=== PATIENT | male | born 1955 | race African-American/Black ===

== ENCOUNTER 2019-05-04 04:04 | Inpatient (IN) | payer BC ==
[~2019-05-04] VITALS: Ht 182.9 cm; Wt 111.1 kg
[2019-05-04] MEDS ORDERED: METHYLPREDNISOLONE SOD SUCC 125 MG/2 ML VIAL IV STA (04:10)
[2019-05-04] MEDS ORDERED: ONDANSETRON HCL 4MG/2ML INJ IV STA (04:10)
[2019-05-04] MEDS ORDERED: IPRATROPIUM BROMIDE (0.02%) 0.5MG/2.5ML NEB HHN STA (04:10)
[2019-05-04] MEDS ORDERED: MAGNESIUM 2 G PREMIX 50 ML IV ONE (04:15)
[2019-05-04] MEDS: ALBUTEROL (0.083%) 2.5MG/3ML NEB HHN SCH ×3 (04:20→05:22)
[2019-05-04 04:40] LABS: EOSINOPHILS % 10.9 % (0.0-5.0); HEMATOCRIT. 43.3 % (42.0-52.0); HEMOGLOBIN. 14.2 g/dL (14.0-18.0); LYMPHOCYTES % 17.2 % (20.0-50.0); MEAN CORPUSCULAR HEMOGLOBIN 28.7 pg (28.0-32.0); MEAN CORPUSCULAR VOLUME 87.8 fL (80.0-94.0); MEAN PLATELET VOLUME 10.6 fl (7.4-10.4); MONOCYTES % 8.3 % (2.0-8.0); NEUTROPHILS % 62.6 % (40.0-76.0); PLATELET 128 x1000/uL (130-400); RED BLOOD CELL COUNT 4.93 mill/uL (4.7-6.1); RED CELL DISTRIBUTION WIDTH 15.8 % (11.6-14.6)
[2019-05-04 04:43] LABS: CHLORIDE 106 mEq/L (98-107)
[2019-05-04 05:45] LABS: BG BASE EXCESS -0.5 mmol/L (-2.0-2.0); BG BILEVEL POS AIRWAY PRESSURE 18/5; BG CARBOXYHEMOGLOBIN 0.7 % (0.5-1.5); BG DEOXYHEMOGLOBIN 1.2 % (0.0-5.0); BG FRACTION INSPIRED OXYGEN 50; BG HCO3 ACT 25.2 mmol/L (22.0-26.0); BG METHEMOGLOBIN 0.2 % (0.0-1.5); BG OXYGEN SATURATION 98.8 % (92.0-98.5); BG OXYHEMOGLOBIN 97.9 % (94.0-97.0); BG PCO2 45.5 mmHg (35.0-45.0); BG PH 7.361 (7.350-7.450); BG PO2 155.3 mmHg (75.0-100.0); BG SAMPLE SITE RIGHT RADIAL; BG TOTAL HEMOGLOBIN 13.5 g/dL (12.0-18.0); BG VENT MODE MASK - BIPAP; BG VENT RATE 18 set
[2019-05-04] MEDS ORDERED: ACETAMINOPHEN 325MG TABLET PO PRN (08:00)
[2019-05-04] MEDS: IPRATROPIUM/ALBUTEROL 0.5-3(2.5)MG/3ML NEB HHN SCH ×4 (08:00→21:23)
[2019-05-04] MEDS ORDERED: KETOROLAC 15MG/ML VIAL IV PRN (08:00)
[2019-05-04] MEDS ORDERED: IPRATROPIUM/ALBUTEROL 0.5-3(2.5)MG/3ML NEB NEB PRN (08:00)
[2019-05-04] MEDS ORDERED: DOCUSATE SODIUM 100MG CAPSULE PO PRN (08:00)
[2019-05-04] MEDS ORDERED: MAGNESIUM/ALUMINUM HYDROXIDE/SIMETHICONE 30ML UDC PO PRN (08:00)
[2019-05-04] MEDS ORDERED: LORAZEPAM 0.5MG TABLET PO PRN (08:00)
[2019-05-04] MEDS ORDERED: CLONIDINE 0.1MG TABLET PO PRN (08:00)
[2019-05-04] MEDS ORDERED: NITROGLYCERIN 0.4MG TABLET SL SL PRN (08:00)
[2019-05-04] MEDS ORDERED: TRAMADOL 50MG TABLET PO PRN (08:00)
[2019-05-04] MEDS ORDERED: ONDANSETRON HCL 4MG/2ML INJ IV PRN (08:00)
[2019-05-04] MEDS ORDERED: LEVOFLOXACIN 500MG PREMIX 100 ML IV SCH (08:00)
[2019-05-04] MEDS ORDERED: ENOXAPARIN 40MG/0.4ML SYR SUBCUT SCH (09:00)
[2019-05-04] MEDS: GUAIFENESIN/DM 600MG/30MG ER TAB 12HR PO SCH ×2 (09:00→21:00)
[2019-05-04] MEDS ORDERED: LEVOFLOXACIN 500MG PREMIX 100 ML IV ONE (09:00)
[2019-05-04] MEDS: DILTIAZEM HCL 60MG TABLET PO SCH ×3 (09:00→18:19)
[2019-05-04] MEDS ORDERED: FAMOTIDINE 20MG TABLET PO SCH (09:00)
[2019-05-04] MEDS: ASPIRIN 325MG EC TABLET PO SCH (09:42)
[2019-05-04] MEDS ORDERED: FUROSEMIDE 40MG/4ML VIAL IVP NR ×2 (10:00→21:00)
[2019-05-04] MEDS: FAMOTIDINE 20MG TABLET PO SCH ×2 (11:45→21:00)
[2019-05-04] MEDS: GUAIFENESIN 200MG/10ML SUGAR FREE UDC PO PRN ×2 (12:22→17:02)
[2019-05-04] MEDS: METHYLPREDNISOLONE SOD SUCC 125 MG/2 ML VIAL IV SCH (14:42)
[2019-05-04] MEDS ORDERED: MONTELUKAST SODIUM 10MG TABLET PO SCH (17:00)
[2019-05-04 17:17] LABS: CREATINE KINASE 323 IU/L (39-308)
[2019-05-04] MEDS ORDERED: SPIRONOLACTONE 25MG TABLET PO NR (21:00)
[2019-05-04] MEDS ORDERED: ZOLPIDEM TARTRATE 5MG TABLET PO PRN (21:00)
[2019-05-04] MEDS ORDERED: MONTELUKAST SODIUM 10MG TABLET PO NR (21:00)
[2019-05-04] MEDS ORDERED: LORATADINE 10MG TABLET PO NR (21:00)
[2019-05-05 00:08] LABS: CREATINE KINASE 373 IU/L (39-308)
[2019-05-05 00:09] LABS: CREATINE KINASE MB FRACTION 6.4 ng/mL (0.5-3.6)
[2019-05-05] MEDS: IPRATROPIUM/ALBUTEROL 0.5-3(2.5)MG/3ML NEB HHN SCH ×5 (02:16→20:55)
[2019-05-05] MEDS ORDERED: MONT4GRA MT (03:41)
[2019-05-05] MEDS ORDERED: FURO-152 MT (03:41)
[2019-05-05] MEDS ORDERED: CETI5TAB5 MT (03:41)
[2019-05-05] MEDS ORDERED: SPIR25TA6 MT (03:41)
[2019-05-05] MEDS ORDERED: GUAI-741 PO (03:41)
[2019-05-05] MEDS: GUAIFENESIN 200MG/10ML SUGAR FREE UDC PO PRN ×2 (03:42→14:59)
[2019-05-05 03:59] VITALS: BP 137/67
[2019-05-05 04:00] VITALS: BP 129/57
[2019-05-05] MEDS: DILTIAZEM HCL 60MG TABLET PO SCH ×3 (06:00→17:18)
[2019-05-05 08:00] VITALS: BP 136/60
[2019-05-05] MEDS: SPIRONOLACTONE 25MG TABLET PO SCH ×2 (08:54→21:05)
[2019-05-05] MEDS: ASPIRIN 325MG EC TABLET PO SCH (08:54)
[2019-05-05] MEDS: METHYLPREDNISOLONE SOD SUCC 125 MG/2 ML VIAL IV SCH ×3 (08:55→21:03)
[2019-05-05] MEDS: GUAIFENESIN/DM 600MG/30MG ER TAB 12HR PO SCH ×2 (08:55→21:04)
[2019-05-05] MEDS: FUROSEMIDE 40MG/4ML VIAL IVP SCH ×2 (08:56→21:08)
[2019-05-05] MEDS: ENOXAPARIN 30MG/0.3ML SYR SUBCUT SCH ×2 (08:59→21:03)
[2019-05-05] MEDS ORDERED: FAMOTIDINE 20MG/2ML VIAL IV SCH (09:00)
[2019-05-05] MEDS: FLUTICASONE PROPIONATE 50MCG/SPRAY BOTTLE BOTHNSTRLS SCH ×2 (09:03→21:03)
[2019-05-05] MEDS: FAMOTIDINE 40MG TABLET PO SCH ×2 (09:30→10:10)
[2019-05-05] MEDS: LEVOFLOXACIN 500MG PREMIX 100 ML IV SCH (10:12)
[2019-05-05 11:38] LABS: BASOPHILS % 0.3 % (0.0-2.0); HEMATOCRIT. 41.5 % (42.0-52.0); HEMOGLOBIN. 13.6 g/dL (14.0-18.0); LYMPHOCYTES % 8.8 % (20.0-50.0); MEAN CORPUSCULAR HEMOGLOBIN 28.4 pg (28.0-32.0); MEAN CORPUSCULAR VOLUME 86.9 fL (80.0-94.0); MEAN PLATELET VOLUME 10.9 fl (7.4-10.4); MONOCYTES % 7.8 % (2.0-8.0); NEUTROPHILS % 83.1 % (40.0-76.0); PLATELET 141 x1000/uL (130-400); RED BLOOD CELL COUNT 4.78 mill/uL (4.7-6.1); RED CELL DISTRIBUTION WIDTH 16.2 % (11.6-14.6)
[2019-05-05 12:00] VITALS: BP 140/59
[2019-05-05] MEDS ORDERED: PNEUMOCOCCAL 23-VAL P-SAC VAC 0.5 ML IM ONE (12:00)
[2019-05-05 12:29] LABS: CHLORIDE 102 mEq/L (98-107)
[2019-05-05 12:37] LABS: PHOSPHORUS 3.6 mg/dL (2.5-4.9)
[2019-05-05 16:00] VITALS: BP 124/51
[2019-05-05] MEDS: MONTELUKAST SODIUM 10MG TABLET PO SCH (17:18)
[2019-05-05 20:00] VITALS: BP 154/70
[2019-05-05] MEDS: BIKTARVY PO SCH (21:00)
[2019-05-05] MEDS: LORATADINE 10MG TABLET PO SCH (21:04)
[2019-05-06] VITALS: BP 133/55
[2019-05-06] MEDS: DILTIAZEM HCL 60MG TABLET PO SCH ×4 (01:45→18:43)
[2019-05-06] MEDS: GUAIFENESIN 200MG/10ML SUGAR FREE UDC PO PRN (01:51)
[2019-05-06 04:00] VITALS: BP 133/68
[2019-05-06] MEDS: METHYLPREDNISOLONE SOD SUCC 125 MG/2 ML VIAL IV SCH ×3 (05:37→21:00)
[2019-05-06] MEDS: IPRATROPIUM/ALBUTEROL 0.5-3(2.5)MG/3ML NEB HHN SCH ×4 (07:42→21:26)
[2019-05-06 08:00] VITALS: BP 133/65
[2019-05-06 10:39] LABS: *AMPHETAMINES SCREEN URINE PRESUMTIVE POSITIVE (NEGATIVE); *BARBITURATES SCREEN URINE NEGATIVE (NEGATIVE); *BENZODIAZEPINES SCREEN URINE NEGATIVE (NEGATIVE); *COCAINE SCREEN URINE NEGATIVE (NEGATIVE)
[2019-05-06 10:40] LABS: CANNABINOID URINE SCREEN NEGATIVE (NEGATIVE); METHADONE URINE SCREEN NEGATIVE (NEGATIVE); OPIATES URINE SCREEN NEGATIVE (NEGATIVE); PHENCYCLIDINE URINE SCREEN NEGATIVE (NEGATIVE)
[2019-05-06] MEDS: FLUTICASONE PROPIONATE 50MCG/SPRAY BOTTLE BOTHNSTRLS SCH ×2 (10:49→20:36)
[2019-05-06] MEDS: GUAIFENESIN/DM 600MG/30MG ER TAB 12HR PO SCH ×2 (10:49→20:34)
[2019-05-06] MEDS: FUROSEMIDE 40MG/4ML VIAL IVP SCH ×2 (10:49→20:35)
[2019-05-06] MEDS: FAMOTIDINE 40MG TABLET PO SCH ×2 (10:50→20:32)
[2019-05-06] MEDS: ASPIRIN 325MG EC TABLET PO SCH (10:50)
[2019-05-06] MEDS: SPIRONOLACTONE 25MG TABLET PO SCH ×2 (10:50→20:32)
[2019-05-06] MEDS: ENOXAPARIN 30MG/0.3ML SYR SUBCUT SCH ×2 (10:51→20:36)
[2019-05-06] MEDS: BIKTARVY PO SCH (10:51)
[2019-05-06] MEDS: LEVOFLOXACIN 500MG PREMIX 100 ML IV SCH (10:52)
[2019-05-06 12:00] VITALS: BP 123/46
[2019-05-06 13:35] LABS: *AMPHETAMINES SCREEN URINE NEGATIVE (NEGATIVE); *BARBITURATES SCREEN URINE NEGATIVE (NEGATIVE); *BENZODIAZEPINES SCREEN URINE NEGATIVE (NEGATIVE); *COCAINE SCREEN URINE NEGATIVE (NEGATIVE); METHADONE URINE SCREEN NEGATIVE (NEGATIVE); OPIATES URINE SCREEN NEGATIVE (NEGATIVE)
[2019-05-06 13:36] LABS: CANNABINOID URINE SCREEN NEGATIVE (NEGATIVE); PHENCYCLIDINE URINE SCREEN NEGATIVE (NEGATIVE)
[2019-05-06 16:00] VITALS: BP 133/70
[2019-05-06] MEDS: MONTELUKAST SODIUM 10MG TABLET PO SCH (18:47)
[2019-05-06 20:00] VITALS: BP 155/80
[2019-05-06] MEDS: LORATADINE 10MG TABLET PO SCH (20:34)
[2019-05-07] VITALS: BP 161/83
[2019-05-07] MEDS: GUAIFENESIN 200MG/10ML SUGAR FREE UDC PO PRN (00:15)
[2019-05-07] MEDS: DILTIAZEM HCL 60MG TABLET PO SCH ×3 (00:15→12:00)
[2019-05-07] MEDS: IPRATROPIUM/ALBUTEROL 0.5-3(2.5)MG/3ML NEB HHN SCH ×4 (00:33→12:56)
[2019-05-07 04:00] VITALS: BP 149/77
[2019-05-07] MEDS: METHYLPREDNISOLONE SOD SUCC 125 MG/2 ML VIAL IV SCH (05:10)
[2019-05-07 08:00] VITALS: BP 137/75
[2019-05-07] MEDS: GUAIFENESIN/DM 600MG/30MG ER TAB 12HR PO SCH (09:12)
[2019-05-07] MEDS: FUROSEMIDE 40MG/4ML VIAL IVP SCH (09:12)
[2019-05-07] MEDS: FLUTICASONE PROPIONATE 50MCG/SPRAY BOTTLE BOTHNSTRLS SCH (09:12)
[2019-05-07] MEDS: ASPIRIN 325MG EC TABLET PO SCH (09:13)
[2019-05-07] MEDS: FAMOTIDINE 40MG TABLET PO SCH (09:13)
[2019-05-07] MEDS: ENOXAPARIN 30MG/0.3ML SYR SUBCUT SCH (09:13)
[2019-05-07] MEDS: SPIRONOLACTONE 25MG TABLET PO SCH (09:13)
[2019-05-07] MEDS: BIKTARVY PO SCH (09:14)
[2019-05-07] MEDS ORDERED: PREDNISONE 20MG TABLET PO SCH (09:45)
[2019-05-07] MEDS ORDERED: BENZONATATE 100MG CAPSULE PO PRN (09:45)
[2019-05-07] MEDS: LEVOFLOXACIN 500MG PREMIX 100 ML IV SCH (09:58)
[2019-05-07 12:00] VITALS: BP 133/68
[2019-05-07 16:12] VITALS: BP 130/65
== END 2019-05-07 16:45 | disposition home or self-care (01) | DRG 193 ==
LOC: ER 04:26 → 7WST 05:13 → EDBEDREQSVC 05:19 → EDBEDREQ 05:19 → EDBEDREQTM 05:19 → SUPCPDRO 09:27 → EDBEDREQSVC 23:32 → ENRESERV 05-05 02:12
PROVIDERS: ADMIT Internal Medicine; ATTEND Internal Medicine
PROC: 5A09357 Assistance with Respiratory Ventilation, Less than 24 Consecutive Hours, Continuous Positive Airway Pressure (ICD-10-PCS; principal; 2019-05-04)
DX: J18.9 Pneumonia, unspecified organism (principal); J96.01 Acute respiratory failure with hypoxia; J44.1 Chronic obstructive pulmonary disease with (acute) exacerbation; I42.9 Cardiomyopathy, unspecified; J44.0 Chronic obstructive pulmonary disease with (acute) lower respiratory infection; I50.30 Unspecified diastolic (congestive) heart failure; J45.901 Unspecified asthma with (acute) exacerbation; D69.6 Thrombocytopenia, unspecified; Z85.72 Personal history of non-Hodgkin lymphomas; Z87.891 Personal history of nicotine dependence; Z92.3 Personal history of irradiation; Z82.49 Family history of ischemic heart disease and other diseases of the circulatory system; Z79.899 Other long term (current) drug therapy
CPT/HCPCS: 36415; 36600; 71045; 80053; 80061; 80305; 82375; 82550; 82553; 82805; 82962; 83036; 83605; 83735; 83880; 84100; 84484; 85025; 87804; 93005; 93306; 93970; 99291; J1650; J1885; J1940; J1956; J2405; J2930; J3475; J7512; J7611; J7620